=== PATIENT | female | born 1950 | race Caucasian/White ===

== ENCOUNTER 2023-02-18 12:07 | Outpatient (CLI) | payer OTHER, MEDICARE, SELFPAY ==
--- OUTSIDE RECORDS SUMMARY | 2023-02-19 22:15 | XMS_ITS | Continuity of Care Document ---
Author Name Unknown Organization [facility] Address [address] [place] [address] Phone Care Team Providers Care Primer Assembler Name Role Phone Will Aaron HERNANDEZ Unavailable Unavailabl e Procedures Procedure Date THERAPEUTIC EXERCISES MANUAL THERAPY THERAPEUTIC EXERCISES MANUAL THERAPY THERAPEUTIC EXERCISES THERAPEUTIC EXERCISES PT RE-EVALUATION MANUAL THERAPY MANUAL THERAPY THERAPEUTIC EXERCISES TheraTube Door Strap (Non-Thera) THERAPEUTIC ACTIVITIES THERAPEUTIC EXERCISES THERAPEUTIC EXERCISES THERAPEUTIC EXERCISES PT EVALUATION NEUROMUSCULAR REEDUCATION PT RE-EVALUATION THERAPEUTIC EXERCISES MANUAL THERAPY NEUROMUSCULAR REEDUCATION THERAPEUTIC EXERCISES NEUROMUSCULAR REEDUCATION THERAPEUTIC ACTIVITIES THERAPEUTIC EXERCISES SI Belt Size S-M NEUROMUSCULAR REEDUCATION PT RE-EVALUATION THERAPEUTIC EXERCISES NEUROMUSCULAR REEDUCATION MANUAL THERAPY THERAPEUTIC EXERCISES THERAPEUTIC ACTIVITIES THERAPEUTIC EXERCISES NEUROMUSCULAR REEDUCATION THERAPEUTIC ACTIVITIES NEUROMUSCULAR REEDUCATION THERAPEUTIC EXERCISES NEUROMUSCULAR REEDUCATION THERAPEUTIC EXERCISES THERAPEUTIC ACTIVITIES NEUROMUSCULAR REEDUCATION THERAPEUTIC ACTIVITIES THERAPEUTIC EXERCISES NEUROMUSCULAR REEDUCATION PT RE-EVALUATION THERAPEUTIC ACTIVITIES TheraBand NEUROMUSCULAR REEDUCATION THERAPEUTIC ACTIVITIES THERAPEUTIC EXERCISES THERAPEUTIC EXERCISES NEUROMUSCULAR REEDUCATION THERAPEUTIC ACTIVITIES NEUROMUSCULAR REEDUCATION THERAPEUTIC ACTIVITIES THERAPEUTIC EXERCISES NEUROMUSCULAR REEDUCATION THERAPEUTIC ACTIVITIES THERAPEUTIC EXERCISES THERAPEUTIC ACTIVITIES THERAPEUTIC EXERCISES NEUROMUSCULAR REEDUCATION NEUROMUSCULAR REEDUCATION THERAPEUTIC EXERCISES THERAPEUTIC ACTIVITIES Fit Loop MANUAL THERAPY THERAPEUTIC EXERCISES NEUROMUSCULAR REEDUCATION THERAPEUTIC ACTIVITIES PT EVALUATION THERAPEUTIC EXERCISES Advance Directives Directive Yes / No Effective Date File Name No Information Encounters Encounter Description Practice Location Reason(s) For Visit Diagnoses Date Provider Providers Copied on Encounter [facility], [address] [place] [address], [id number], [place] tel:[phone] [facility] No Information Derick Walker. [address] [place] [address], [id number], [place]. tel:[phone] [facility], [address] [place] [address], [id number], [place] tel:[phone] [facility] Frozen shoulder (chief complaint) Adhesive capsulitis of shoulder [facility]. [address] [place] [address], [address]. tel:[phone] Referring Provider: Aaron Elizabeth, [address] [place] [address], [id number]. tel:[phone] [facility], [address] [place] [address], [id number], [place] tel:[phone] [facility] [place] Frozen shoulder (chief complaint) Adhesive capsulitis of shoulder [facility]. [address] [place] [address], [address]. tel:[phone] Referring Provider: Aaron Elizabeth, [address] [place] [address], [address]. tel:[phone] [facility], [address] [place] [address], [id number], [place] tel:[phone] [facility] [place] neck pain (chief complaint) No Information [facility]. [address] [place] [address], [address]. tel:[phone] Referring Provider: Aaron Elizabeth, [address] [place] [address], [id number]. tel:[phone] [facility], [address] [place] [address], [id number], [place] tel:[phone] [facility] [place] neck pain (chief complaint) No Information [facility]. [address] [place] [address], [address]. tel:[phone] Referring Provider: Aaron Elizabeth, [address] [place] [address], [address]. tel:[phone] [facility], [address] [place] [address], [id number], [place] tel:[phone] [facility] [place] neck pain (chief complaint) No Information [facility]. [address] [place] [address], [address]. tel:[phone] Referring Provider: Aaron Elizabeth, [address] [place] [address], [address]. tel:[phone] [facility], [address] [place] [address], [id number], [place] tel:[phone] [facility] [place] neck pain (chief complaint) No Information [facility]. [address] [place] [address], [address]. tel:[phone] Referring Provider: Aaron Elizabeth, [address] [place] [address], [address]. tel:[phone] [facility], [address] [place] [address], [id number], [place] tel:[phone] [facility] [place] neck pain (chief complaint) No Information [facility]. [address] [place] [address], [address]. tel:[phone] Referring Provider: Aaron Elizabeth, [address] [place] [address], [address]. tel:[phone] [facility], [address] [place] [address], [id number], [place] tel:[phone] [facility] [place] neck pain (chief complaint) Adhesive capsulitis of shoulder [facility]. [address] [place] [address], [address]. tel:[phone] Referring Provider: Aaron Elizabeth, [address] [place] [address], [address]. tel:[phone] [facility], [address] [place] [address], [id number], [place] tel:[phone] [facility] [place] neck pain (chief complaint) No Information [facility]. [address] [place] [address], [address]. tel:[phone] Referring Provider: Aaron Elizabeth, [address] [place] [address], [address]. tel:[phone] [facility], [address] [place] [address], [id number], [place] tel:[phone] [facility] [place] neck pain (chief complaint) No Information [facility]. [address] [place] [address], [address]. tel:[phone] Referring Provider: Aarno Elizabeth, [address] [place] [address], [address]. tel:[phone] [facility], [address] [place] [address], [id number], [place] tel:[phone] [facility] [place] neck pain (chief complaint) No Information [facility]. [address] [place] [address], [address]. tel:[phone] Referring Provider: Aaron Elizabeth, [address] [place] [address], [address]. tel:[phone] [facility], [address] [place] [address], [id number], [place] tel:[phone] [facility] [place] neck pain (chief complaint) No Information [facility]. [address] [place] [address], [address]. tel:[phone] Referring Provider: Aaron Elizabeth, [address] [place] [address], [address]. tel:[phone] [facility], [address] [place] [address], [id number], [place] tel:[phone] [facility] [place] neck pain (chief complaint) No Information [facility]. [address] [place] [address], [address]. tel:[phone] Referring Provider: Aaron Elizabeth, [address] [place] [address], [address]. tel:[phone] [facility], [address] [place] [address], [id number], [place] tel:[phone] [facility] [place] neck pain (chief complaint) No Information [facility]. [address] [place] [address], [address]. tel:[phone] Referring Provider: Aaron Elizabeth, [address] [place] [address], [address]. tel:[phone] [facility], [address] [place] [address], [id number], [place] tel:[phone] [facility] [place] neck pain (chief complaint) Unspecified symptom associated with female genital organs [facility]. [address] [place] [address], [address]. tel:[phone] Referring Provider: Aaron Elizabeth, [address] [place] [address], [address]. tel:[phone] [facility], [address] [place] [address], [id number], [place] tel:[phone] [facility] [place] neck pain (chief complaint) No Information [facility]. [address] [place] [address], [address]. tel:[phone] Referring Provider: Aaron Elizabeth, [address] [place] [address], [address]. tel:[phone] [facility], [address] [place] [address], [id number], [place] tel:[phone] [facility] [place] neck pain (chief complaint) No Information [facility]. [address] [place] [address], [address]. tel:[phone] Referring Provider: Aaron Elizabeth, [address] [place] [address], [address]. tel:[phone] [facility], [address] [place] [address], [id number], [place] tel:[phone] [facility] [place] neck pain (chief complaint) No Information [facility]. [address] [place] [address], [address]. tel:[phone] Referring Provider: Aaron Elizabeth, [address] [place] [address], [address]. tel:[phone] [facility], [address] [place] [address], [id number], [place] tel:[phone] [facility] [place] neck pain (chief complaint) No Information [facility]. [address] [place] [address], [address]. tel:[phone] Referring Provider: Aaron Elizabeth, [address] [place] [address], [address]. tel:[phone] [facility], [address] [place] [address], [id number], [place] tel:[phone] [facility] [place] neck pain (chief complaint) No Information Mateus MANN [facility]. [address] [place] [address], [address]. tel:[phone] Referring Provider: Aaron Elizabeth, [address] [place] [address], [address]. tel:[phone] [facility], [address] [place] [address], [id number], [place] tel:[phone] [facility] [place] neck pain (chief complaint) No Information Mateus Manleyen. [address] [place] [address], [address]. tel:[phone] Referring Provider: Aaron Elizabeth, [address] [place] [address], [address]. tel:[phone] [facility], [address] [place] [address], [id number], [place] tel:[phone] [facility] [place] neck pain (chief complaint) No Information Mateus F[facility]. [address] [place] [address], [address]. tel:[phone] Referring Provider: Aaron Elizabeth, [address] [place] [address], [address]. tel:[phone] [facility], [address] [place] [address], [id number], [place] tel:[phone] [facility] [place] neck pain (chief complaint) No Information Mateus MANN [facility]. [address] [place] [address], [address]. tel:[phone] Referring Provider: Aaron Elizabeth, [address] [place] [address], [address]. tel:[phone] [facility], [address] [place] [address], [id number], tel:[phone] [facility] [place] neck pain (chief complaint) No Information [facility]. [address] [place] [address], [address]. tel:[phone] Referring Provider: Aaron Elizabeth, [address] [place] [address], [address]. tel:[phone] [facility], [address] [place] [address], [id number], tel:[phone] [facility] [place] neck pain (chief complaint) No Information [facility]. [address] [place] [address], [address]. tel:[phone] Referring Provider: Aaron Elizabeth, [address] [place] [address], [address]. tel:[phone] [facility], [address] [place] [address], [id number], tel:[phone] [facility] neck pain (chief complaint) Cervicalgia [facility]. [address] [place] [address], [address]. tel:[phone] Referring Provider: Aaron Elizabeth, [address] [place] [address], [address]. tel:[phone] Family History Family Member Type Diagnosis Age At Onset No Information Payers Payer name Insurance type Covered alliance party ID Dimitry kraftcabrera(s) [facility] [id number] Social History Type Description Quantity Date Captured Comments Sex Female Smoking Status No Information Chief Complaint And Reason For Visit No Information Reason For Referral Reason For Referral No Information Plan Of Treatment Date Type Action Status No Information History Of Present Illness Encounter Date Complaint History Of Prese nt Illness Frozen shoulder No L shoulder pa in. Able to perform most ADL's without difficulty other than fastening bra with left hand. Frozen shoulder R neck is a bit sore and gets and occasional OCHOA. L shoulder is feeling good. Functional Status Date Functional Assessmen t No Information Instructions Date Instruction Additional Infor mation No Information Assessments Type Assessment Date No Information Patient Care Teams Name Effective Dates (start - stop) Status Members No Information
--- OUTSIDE RECORDS SUMMARY | 2023-02-19 22:15 | XMS_ITS | Continuity of Care Document ---
Author Name Unknown Organization [facility] Address [address] [address] [place] [address] Phone Care Team Providers Care Glass Silverer Name Role Phone Alessandra Larose MD Unavailable Unavailable Allergies, Adverse Reactions, Alerts Substance Reaction Status Criticality QUETIAPINE FUMARATE agitationSleeplessness Active No Information cefadroxil cough Active No Information CEPHALEXIN MONOHYDRATE cough Active No In formation trimethoprim Rash Active No Information sulfamethoxazole Rash Active No Informat ion NITROFURANTOIN MACROCRYSTALLINE Rash Active No Information Penicillins unsure Active No Information Medications Medication Instructions Dosage Effective Dates (start - stop) Status Comments ZINC (unknown strength) take 1 Tablet by Oral route once every other day Not Available - Active COQ-10 (unknown strength) take one orally every other day Not Available - Active VITAMIN D3 (unknown strength) take 1 by Oral route every other day Not Available - Active vitamin E (dl, acetate) 400 unit capsule take 1 Capsule by Oral route every other day - Active RAY-C (unknown strength) take 2 daily Not Available - Active RESVERATROL (unknown strength) take 1 time daily Not Available - Active GLUTATHIONE-L (unknown strength) take daily Not Available - Active ALPHA LIPOIC ACID (unknown strength) take 1 tablet by oral route every day Not Available - Active CRANBERRY (unknown strength) take 1 tab every other day Not Available - Active LYCOPENE (unknown strength) take every other day Not Available - Active GRAPE SEED (unknown strength) take 1 tab every other day Not Available - Active Herbal Medications/Suppleme nts unknown take bone strength/basic B/ xeno protx/ skin nails hair every other day - Active MOLYBDENUM (unknown strength) 3 drops every other day Not Available - Active multivitamin capsule take 1 capsule by oral route every day - Active PROBIOTIC (unknown strength) take one orally everyday Not Available - Active MAGNESIUM (unknown strength) take three orally every day Not Available - Active ODORLESS GARLIC (unknown strength) take one orally everyday Not Available - Active Procedures Procedure Date Colonoscopy Flex; W/remov Les- 19 Level Iv-surg Path Gross/micro Colonoscopy Flex; W/remov Les- 13 Level Iv-surg Path Gross/micro Advance Directives Directive Yes / No Effective Date File Name No Information Encounters Encounter Description Practice Location Reason(s) For Visit Diagnoses Date Provider Providers Copied on Encounter [facility], [address] [address], [place], [place], [id number], tel:[phone] [facility] No Information 9 Lachelle Aparicio. [address] [place] [address], [id number], [place]. tel:[phone] [facility], [address] [address], [place], [place], [id number], tel:[phone] [facility] No Information 9 No Information [facility], [address] [address], [place], [place], [id number], tel:[phone] [facility] Screening ColonoscopyColor ectal polypsDiverticul osis of colon without diverticulitisHe morrhoids, internalPersonal history of colonic polypsBenign neoplasm of cecumEncounter for screening for malignant neoplasm of colonDvrtclos of lg int w/o perforation or abscess w/o bleedingBenign neoplasm of cecumPersonal history of colonic polyps 9 Lachelle Aparicio. [address] [place] [address], [id number], . tel:[phone] Referring Provider: Referral Self. [facility], [address] [address], [place], [id number], [place] tel:[phone] Cla[facility] Polyp-intes/rect /stom-unc BehFamily Hx GI Tract CancerColon Cancer ScreeningBenign Neoplasm ColonDiverticulo sis Of ColonColon Cancer ScreeningDiverti culosis Of ColonFamily Hx GI Tract CancerBenign Neoplasm Colon 3 Lachelle Aparicio. [address] [facility], [place], [place], [id number], [place]. tel:[phone] Referring Provider: [place], [address] [facility], [place], [address]. tel:[phone] Family History Family Member Type Diagnosis Age At Onset Son Problem (finding) Alive and well Mother Problem (finding) Daughter Problem (finding) Alive and well Father Problem (finding) cancer of colon (Cause Of ) Brother Problem (finding) prostate cancer Payers Payer name Insurance type Covered alliance party ID Authoriza ticabrera(s) Medicare NGS MB [id number] [employer] 16 [id number] Social History Type Description Quantity Date Captured Comments Sex Female Smoking Status No Information Chief Complaint And Reason For Visit No Information Reason For Referral Reason For Referral No Information Plan Of Treatment Date Type Action Status No Information History Of Present Illness Encounter Date Complaint History Of Prese nt Illness No Information Functional Status Date Functional Assessmen t No Information Instructions Date Instruction Additional Infor mation Colon Polyps Related to Color ectal polyps Hemorrhoids Related to Color ectal polyps Colon Cancer Prevention Related to Colorectal polyps High Fiber Diet Related to Color ectal polyps Diverticulosis/Diverticulitis Re lated to Colorectal polyps Assessments Type Assessment Date No Information Patient Care Teams Name Effective Dates (start - stop) Status Members No Information
== END 2023-02-18 12:08 | disposition home or self-care (01) ==
LOC: NFLDREF 02-19 22:13
PROVIDERS: PCP Family Medicine; Referring Provider Family Medicine; Visit Provider Physician Assistant
DX: R30.0 Dysuria (principal); R39.9 Unspecified symptoms and signs involving the genitourinary system
CPT/HCPCS: 87086

== ENCOUNTER 2023-02-22 10:36 | Outpatient (CLI) | payer OTHER, SELFPAY ==
--- OUTSIDE RECORDS SUMMARY | 2023-02-22 10:44 | XMS_ITS | Continuity of Care Document ---
Author Name Unknown Organization [facility] Address [address] [place] [address] Phone Care Team Providers Care Teacher'S Assistant Name Role Phone Will Aaron HERNANDEZ Unavailable [...] Diagnoses Date Provider Providers Copied on Encounter [facility], [address] [place] [address], [id number], [place] tel:[phone] [facility] No Information Derick Walker. [address] [place] [address], [id number], [place]. tel:[phone] [facility], [address] [place] [address], [id number], [place] tel:[phone] [facility] Frozen shoulder (chief complaint) Adhesive capsulitis of shoulder [facility] [place]. [address] [place] [address], [id number]. tel:[phone] Referring Provider: Aaron Elizabeth, [address] [place] [address], [id number]. tel:[phone] [facility], [address] [place] [address], [id number], [place] tel:[phone] [facility] Frozen shoulder (chief complaint) Adhesive capsulitis of shoulder [facility]. [address] [place] [address], [id number]. tel:[phone] Referring Provider: Aaron Elizabeth, [address] [place] [address], [id number]. tel:[phone] [facility], [address] [place] [address], [id number], [place] tel:[phone] [facility] [place] neck pain (chief complaint) No Information [facility]. [address] [place] [address], [address]. tel:[phone] Referring Provider: Aaron Elizabeth, [address] [place] [address], [id number]. tel:[phone] [facility], [address] [place] [address], [id number], [place] tel:[phone] [facility] [place] neck pain (chief complaint) No Information [facility]. [address] [place] [address], [id number]. tel:[phone] Referring Provider: aAron Elizabeth, [address] [place] [address], [id number]. tel:[phone] [facility], [address] [place] [address], [id number], [place] tel:[phone] [facility] [place] neck pain (chief complaint) No Information [facility]. [address] [place] [address], [id number]. tel:[phone] Referring Provider: Aaron Elizabeth, [address] [place] [address], [id number]. tel:[phone] [facility], [address] [place] [address], [id number], [place] tel:[phone] [facility] [place] neck pain (chief complaint) No Information [facility]. [address] [place] [address], [id number]. tel:[phone] Referring Provider: Aaron Elizabeth, [address] [place] [address], [id number]. tel:[phone] [facility], [address] [place] [address], [id number], [place] tel:[phone] [facility] [place] neck pain (chief complaint) No Information [facility]. [address] [place] [address], [id number]. tel:[phone] Referring Provider: Aaron Elizabeth, [address] [place] [address], [id number]. tel:[phone] [facility], [address] [place] [address], [id number], [place] tel:[phone] [facility] [place] neck pain (chief complaint) Adhesive capsulitis of shoulder [facility]. [address] [place] [address], [id number]. tel:[phone] Referring Provider: Aaron Elizabeth, [address] [place] [address], [id number]. tel:[phone] [facility], [address] [place] [address], [id number], [place] tel:[phone] [facility] [place] neck pain (chief complaint) No Information [facility]. [address] [place] [address], [address]. tel:[phone] Referring Provider: Aaron Elizabeth, [address] [place] [address], [address]. tel:[phone] [facility], [address] [place] [address], [id number], [place] tel:[phone] [facility] [place] neck pain (chief complaint) No Information [facility]. [address] [place] [address], [id number]. tel:[phone] Referring Provider: Aaron Elizabeth, [address] [place] [address], [id number]. tel:[phone] [facility], [address] [place] [address], [id number], [place] tel:[phone] [facility] [place] neck pain (chief complaint) No Information [facility]. [address] [place] [address], [address]. tel:[phone] Referring Provider: Aaron Elizabeth, [address] [place] [address], [id number]. tel:[phone] [facility], [address] [place] [address], [id number], [place] tel:[phone] [facility] [place] neck pain (chief complaint) No Information [facility]. [address] [place] [address], [id number]. tel:[phone] Referring Provider: Aaron Elizabeth, [address] [place] [address], [id number]. tel:[phone] [facility], [address] [place] [address], [id number], [place] tel:[phone] [facility] [place] neck pain (chief complaint) No Information [facility]. [address] [place] [address], [address]. tel:[phone] Referring Provider: Aaron Elizabeth, [address] [place] [address], [id number]. tel:[phone] [facility], [address] [place] [address], [id number], [place] tel:[phone] [facility] [place] neck pain (chief complaint) No Information [facility]. [address] [place] [address], [id number]. tel:[phone] Referring Provider: Aaron Elizabeth, [address] [place] [address], [id number]. tel:[phone] [facility], [address] [place] [address], [id number], [place] tel:[phone] [facility] [place] neck pain (chief complaint) Unspecified symptom associated with female genital organs [facility]. [address] [place] [address], [address]. tel:[phone] Referring Provider: Aaron Elizabeth, [address] [place] [address], [id number]. tel:[phone] [facility], [address] [place] [address], [id number], [place] tel:[phone] [facility] [place] neck pain (chief complaint) No Information [facility]. [address] [place] [address], [address]. tel:[phone] Referring Provider: Aaron Elizabeth, [address] [place] [address], [id number]. tel:[phone] [facility], [address] [place] [address], [id number], [place] tel:[phone] [facility] [place] neck pain (chief complaint) No Information [facility]. [address] [place] [address], [address]. tel:[phone] Referring Provider: Aaron Elizabeth, [address] [place] [address], [id number]. tel:[phone] [facility], [address] [place] [address], [id number], [place] tel:[phone] [facility] [place] neck pain (chief complaint) No Information [facility]. [address] [place] [address], [id number]. tel:[phone] Referring Provider: Aaron Elizabeth, [address] [place] [address], [address]. tel:[phone] [facility], [address] [place] [address], [id number], [place] tel:[phone] [facility] [place] neck pain (chief complaint) No Information [facility] [place]. [address] [place] [address], [address]. tel:[phone] Referring Provider: Aaron Elizabeth, [address] [place] [address], [id number]. tel:[phone] [facility], [address] [place] [address], [id number], [place] tel:[phone] [facility] [place] neck pain (chief complaint) No Information Mateus M[facility] [place]. [address] [place] [address], [address]. tel:[phone] Referring Provider: Aaron Elizabeht, [address] [place] [address], [id number]. tel:[phone] [facility], [address] [place] [address], [id number], [place] tel:[phone] [facility] [place] neck pain (chief complaint) No Information Mateus [facility]. [address] [place] [address], [id number]. tel:[phone] Referring Provider: Aaron Elizabeth, [address] [place] [address], [address]. tel:[phone] [facility], [address] [place] [address], [id number], [place] tel:[phone] [facility] [place] neck pain (chief complaint) No Information Mateus FONTAINE [facility]. [address] [place] [address], [address]. tel:[phone] Referring Provider: Aaron Elizabeth, [address] [place] [address], [id number]. tel:[phone] [facility], [address] [place] [address], [id number], [place] tel:[phone] [facility] [place] neck pain (chief complaint) No Information Mateus M[facility] [place]. [address] [place] [address], [address]. tel:[phone] Referring Provider: Aaron Elizabeth, [address] [place] [address], [address]. tel:[phone] [facility], [address] [place] [address], [id number], tel:[phone] [facility] neck pain (chief complaint) No Information [facility]. [address] [place] [address], [address]. tel:[phone] Referring Provider: Aaron Elizabeth, [address] [place] [address], [address]. tel:[phone] [facility], [address] [place] [address], [id number], tel:[phone] [facility] [place] neck pain (chief complaint) No Information [facility]. [address] [place] [address], [address]. tel:[phone] Referring Provider: Aaron Elizabeth, [address] [place] [address], [address]. tel:[phone] [facility], [address] [place] [address], [id number], tel:[phone] [facility] neck pain (chief complaint) Cervicalgia [facility]. [address] [place] [address], [address]. tel:[phone] Referring Provider: Aaron Elizabeth, [address] [place] [address], [address]. tel:[phone] Family History Family Member Type Diagnosis Age At Onset No Information Payers Payer name Insurance type Covered democrat ID Dimitry kraftcabrera(s[id number] Social History Type Description Quantity Date Captured [...]
== END 2023-02-22 10:37 | disposition home or self-care (01) ==
PROVIDERS: PCP Family Medicine; Visit Provider Family Medicine
DX: E78.00 Pure hypercholesterolemia, unspecified (principal); R35.0 Frequency of micturition; N90.4 Leukoplakia of vulva
CPT/HCPCS: 80048; 80061; 82306; 84443

== ENCOUNTER 2023-03-03 13:29 | Emergency (ER) | payer OTHER, SELFPAY ==
[2023-03-03 13:37] VITALS: BP 147/75; PULSE 81; RESP 14; TEMP 36.5; O2SAT 94; BMI 24.0
--- NOTE | 2023-03-03 13:44 | ED_ITS ---
HPI - Female Genitourinary General Time Seen by Provider: 13:44 Date Seen: 03/03/23 Chief complaint: Urogenital Problems, Female Stated complaint: bubbles in urine Time Seen by Provider: 03/03/23 13:44 Source: patient, RN notes reviewed and old records reviewed Mode of arrival: ambulatory Limitations: no limitations History of Present Illness HPI Narrative: Barbie is a very pleasant 72-year-old female with a history of nocturia lichen sclerosis of the vulva basal cell carcinoma who comes to the emergency room for evaluation regarding possible urinary retention and pain with urination. Patient notes that she has noticed during the day she urinates frequently but they are rather small amounts. She states that night she is up often during the night but is not as much of the day and has increased amounts at urination. She is worried that somehow she is retaining urine. She notes that 30 years ago she did have an ultrasound that was normal. Patient was recently seeing in urgent care at which time her urine was okay and I culture came back with less than 50,000 mixed phillip. I believe that she was under the impression that this indicated an infection. She is not currently on antibiotics. After having been seen in urgent care she saw Dr. Ross who noted a wet prep that was negative as well as lichen sclerosus. He has referred her to Dr. Tran of the OBGYN department for biopsy and further evaluation. Unfortunately, she states that she was unable to get in for approximately a month. She states that she was coming here today because she thought it was urgent care and then left and then decided to come back. She notes that she has a continued stinging feeling while she is urinating in afterwards. She denies fever chills. She has been losing weight and elaborates that she has recently changed her diet to reflect a blood type indicated diet. Unfortunately, she states that she thinks she has interstitial cystitis and that all of the foods on her particular diet were triggers for her. Related Data Home Medications Medication Instructions Recorded Confirmed clobetasol 0.05 % topical ointment 1 topical .Twice Weekly 08/07/22 02/22/23 red yeast rice 600 mg capsule 600 mg PO BID 08/07/22 02/22/23 ashwagandha extract 120 mg capsule mg PO 02/22/23 02/22/23 cholecalciferol (vitamin D3) 125 125 mcg PO QDAY 02/22/23 02/22/23 mcg (5,000 unit) capsule magnesium glycinate 500 mg PO 02/22/23 02/22/23 vitamin K2 100 mcg capsule 100 mcg PO QDAY 02/22/23 02/22/23 Allergies Allergy/AdvReac Type Severity Reaction Status Date / Time cephalexin Allergy Intermediate Cough Verified 02/22/23 09:50 nitrofurantoin Allergy Intermediate Rash Verified 02/22/23 09:50 Penicillins Allergy Intermediate childhood Verified 02/22/23 09:50 sulfamethoxazole Allergy Intermediate Rash Verified 02/22/23 09:50 [From Sulfamethoxazole-Trimethoprim] trimethoprim Allergy Intermediate Rash Verified 02/22/23 09:50 [From Sulfamethoxazole-Trimethoprim] cefadroxil Allergy Mild Cough Verified 02/22/23 09:50 Review of Systems Status of ROS: Reports: 6 or more systems reviewed and unremarkable except as noted in History and below Const: Denies: fever or chills GI: Denies: abdominal pain or nausea : Reports: painful urination and urinary frequency; Denies: blood in urine [facility] Medical History Urinary frequency ?R35.0 - Frequency of micturition (ICD-10) Neck pain ?M54.2 - Cervicalgia (ICD-10) History of malignant neoplasm of breast ?Z85.3 - Personal history of malignant neoplasm of breast (ICD-10) Encounter for annual physical exam ?Z00.00 - Encounter for general adult medical examination without abnormal findings (ICD-10) Dermatitis ?L30.9 - Dermatitis, unspecified (ICD-10) Back pain ?M54.9 - Dorsalgia, unspecified (ICD-10) Surgical History History of tooth extraction ?K08.409 - Partial loss of teeth, unspecified cause, unspecified class (ICD- 10) History of dilation and curettage ?Z98.890 - Other specified postprocedural states (ICD-10) History of breast biopsy ?Z98.890 - Other specified postprocedural states (ICD-10) History of bilateral mastectomy ?Z90.13 - Acquired absence of bilateral breasts and nipples (ICD-10) History of basal cell carcinoma (BCC) excision ?Z98.890 - Other specified postprocedural states (ICD-10) ?Z85.828 - Personal history of other malignant neoplasm of skin (ICD-10) Social History Smoking Status: Never smoker Exam Narrative: Exam Narrative: Barbie is alert and oriented. Provides a detailed history. Her accompanies her here today. GCS of 15, speech is normal. Heart with regular rate and rhythm and lungs are clear. Abdomen is soft nontender. No masses palpated. Moving all extremities. Const: Vital Signs, click to edit/add: Vital Signs - 24 hr 03/03/23 13:37 Temperature 97.7 F Pulse Rate [Pulse Oximeter] 81 Respiratory Rate 14 Blood Pressure [Ri ght Upper Arm] 147/75 H Pulse Oximetry 94 Oxygen Delivery Me thod Room Air Documenting provider has reviewed patient's vital signs: yes Course Course Hospital Course: I did explain to Barbie in her that we likely will not come to a conclusion today but certainly I would be happy to rule out urinary retention and a urinary tract infection. Suggest collection of a UA, and then post void residual check with ultrasound. I will also culture her urinalysis no matter what it looks like. I did initially suggest labs to include a CBC basic panel but it does appear that Dr. Ross has already done that recently. I did explain to Mane her that in the emergency room we would not do any long-term studies to evaluate this. Mainly I would make sure that there is no evidence of infection and need for antibiotics as well as ultrasound to make sure that she did not need an indwelling catheter. Reevaluation(s) Reevaluation #1: Patient has extensive questioning of her symptoms. We have gone over the importance of follow-up to see if her lichen sclerosis is possibly implicated in how she is feeling. She may ultimately need referral to Urology. Vital Signs Vital signs: Initial Vital Signs Temperature 97.7 F 03/03/23 13:37 Temperature Source Temporal Artery Scan 03/03/23 13:37 Pulse Rate 81 03/03/23 13:37 Respiratory Rate 14 03/03/23 13:37 Blood Pressure 147/75 H 03/03/23 13:37 Blood Pressure Mean 99 03/03/23 13:37 Pulse Oximetry 94 03/03/23 13:37 Oxygen Delivery Method Room Air 03/03/23 13:37 Vital Signs Temperature 97.7 F 03/03/23 13:37 Pulse Rate 81 03/03/23 13:37 Respiratory Rate 14 03/03/23 13:37 Blood Pressure 147/75 H 03/03/23 13:37 Pulse Oximetry 94 03/03/23 13:37 Oxygen Delivery Method Room Air 03/03/23 13:37 Temperature 97.7 F 03/03/23 13:37 Pulse Rate 81 03/03/23 13:37 Respiratory Rate 14 03/03/23 13:37 Blood Pressure 147/75 H 03/03/23 13:37 Pulse Oximetry 94 03/03/23 13:37 Oxygen Delivery Method Room Air 03/03/23 13:37 MDM - Female Genitourinary MDM Narrative Medical decision making narrative: 1. Dysuria-no evidence of UTI at this time. I have ordered a culture in spite of the reassuring urinalysis. 2. Nocturia-no evidence of urinary retention with postvoid residual of 21. 3. Disposition-at this time recommend follow-up with OBGYN as her primary had also done. I would call let them know that patient was here in the emergency room and perhaps they could find her appointment on an expedited basis. Reassurance at this time. However, patient is very concerned in spite of reassuring labs at this time. We spoke about possibility of treatment with steroid cream which she actually already has but has not been using it very often. We also spoke about using estrogen cream but ultimately I would like all of these decisions to be made by her primary with consultation assistance. Medical Records Attestation: I reviewed the patient's medical records. Lab Data Attestation: I reviewed the patient's lab results. Labs: Lab Results 03/03/23 Range/Units 14:24 Urine Color Yellow (Yellow) Urine Appearance Clear (Clear) Urine pH 7.0 (5.0-8.5) Ur Specific [place] 1.010 (1.000-1.030) Urine Protein Negative (Negative) Urine Glucose (UA) Negative (Negative) Urine Ketones 2+ A (Negative) Urine Blood Trace-intact A (Negative) Urine Nitrite Negative (Negative) Urine Bilirubin Negative (Negative) Urine Urobilinogen 0.2 (0.2-1.0) Ur Leukocyte Esterase Trace A (Negative) Urine RBC 0-2 (0-2) Urine WBC 0-2 (0-5) Ur Squamous Epith Cells Few (None-Few) Urine Bacteria Few A (None) Discharge Plan Discharge Clinical Impression: Dysuria Patient Disposition: Home, Self-Care Condition: Unchanged Instructions: Dysuria (ED) Additional Instructions: Today there was no evidence of urinary retention on the ultrasound. Does appear that you are emptying your bladder. Your urinalysis showed that you are mildly dehydrated but there is no evidence of a urinary tract infection. I have asked that this be sent for a urine culture. Follow-up with OBGYN as previously suggested. Let them know you were seen in the emergency room and perhaps they would be able to find you an appointment on an expedited basis. Return as needed. Prescriptions: No Action red yeast rice 600 mg capsule 600 mg PO BID clobetasol 0.05 % ointment 1 topical .Twice Weekly Rx Instructions: APPLY SPARINGLY TO AFFECTED AREA magnesium glycinate 100 mg magnesium capsule 500 mg PO ashwagandha extract 120 mg capsule PO cholecalciferol (vitamin D3) 125 mcg (5,000 unit) capsule 125 mcg PO QDAY vitamin K2 100 mcg capsule 100 mcg PO QDAY Follow Up/Referrals: Dewayne Ross MD [Primary Care Provider] - Stand Alone Forms: [facility] Info Instructions
[2023-03-03 14:30] LABS: Appearance Urine Clear (Clear); Bilirubin Urine Negative (Negative); Blood Urine Trace-intact (Negative); Color Urine Yellow (Yellow); Glucose Urine Negative (Negative); Ketones Urine 2+ (Negative); Leukocyte Esterase Urine Trace (Negative); Nitrite Urine Negative (Negative); Protein Urine Negative (Negative); Urobilinogen Urine 0.2 (0.2-1.0)
[2023-03-03 15:17] LABS: Bacteria Urine Few; RBC Urine 0-2 (0-2); Squamous Epithelial Cell Urine Few (None-Few); WBC Urine 0-2 (0-5)
== END 2023-03-03 15:44 | disposition home or self-care (01) ==
PROVIDERS: Emergency Provider Family Medicine; PCP Family Medicine
DX: R30.0 Dysuria (principal)
CPT/HCPCS: 51798; 81001; 87086; 99283; 99284

== ENCOUNTER 2023-03-18 13:15 | Outpatient (CLI) | payer OTHER, SELFPAY ==
--- OUTSIDE RECORDS SUMMARY | 2023-03-20 11:55 | XMS_ITS | Continuity of Care Document ---
Author Name Unknown Organization [facility] Address [address] [place] [address] Phone Care Team Providers Care Financial Reporting Analyst Name Role Phone Will Aaron HERNANDEZ Unavailable [...] Diagnoses Date Provider Providers Copied on Encounter [facility], [address] [place] [address], [id number], [place] tel:[phone] [facility] No Information Derick Walker. [address] [place] [address], [id number], [place]. tel:[phone] [facility], [address] [place] [address], [id number], [place] tel:[phone] [facility] Frozen shoulder (chief complaint) Adhesive capsulitis of shoulder [facility]. [address] [place] [address], [id number]. tel:[phone] Referring Provider: Aaron Elizabeth, [address] [place] [address], [id number]. tel:[phone] [facility], [address] [place] [address], [id number], [place] tel:[phone] [facility] [place] Frozen shoulder (chief complaint) Adhesive capsulitis of shoulder [facility]. [address] [place] [address], [address]. tel:[phone] Referring Provider: Aaron Elizabeth, [address] [place] [address], [id number]. tel:[phone] [facility], [address] [place] [address], [id number], [place] tel:[phone] [facility] [place] neck pain (chief complaint) No Information [facility]. [address] [place] [address], [address]. tel:[phone] Referring Provider: Aaron Elizabeth, [address] [place] [address], [id number]. tel:[phone] [facility], [address] [place] [address], [id number], [place] tel:[phone] [facility] [place] neck pain (chief complaint) No Information [facility]. [address] [place] [address], [address]. tel:[phone] Referring Provider: Aaron Elizabeth, [address] [place] [address], [id number]. tel:[phone] [facility], [address] [place] [address], [id number], [place] tel:[phone] [facility] [place] neck pain (chief complaint) No Information [facility]. [address] [place] [address], [address]. tel:[phone] Referring Provider: Aaron Elizabeth, [address] [place] [address], [id number]. tel:[phone] [facility], [address] [place] [address], [id number], [place] tel:[phone] [facility] [place] neck pain (chief complaint) No Information [facility]. [address] [place] [address], [id number]. tel:[phone] Referring Provider: Aaron Elizabeth, [address] [place] [address], [id number]. tel:[phone] [facility], [address] [place] [address], [id number], [place] tel:[phone] [facility] [place] neck pain (chief complaint) No Information [facility]. [address] [place] [address], [address]. tel:[phone] Referring Provider: Aaron Elizabeth, [address] [place] [address], [id number]. tel:[phone] [facility], [address] [place] [address], [id number], [place] tel:[phone] [facility] [place] neck pain (chief complaint) Adhesive capsulitis of shoulder [facility]. [address] [place] [address], [address]. tel:[phone] Referring Provider: Aaron Elizabeth, [address] [place] [address], [id number]. tel:[phone] [facility], [address] [place] [address], [id number], [place] tel:[phone] [facility] [place] neck pain (chief complaint) No Information [facility]. [address] [place] [address], [address]. tel:[phone] Referring Provider: Aaron Elizabeth, [address] [place] [address], [id number]. tel:[phone] [facility], [address] [place] [address], [id number], [place] tel:[phone] [facility] [place] neck pain (chief complaint) No Information [facility]. [address] [place] [address], [address]. tel:[phone] Referring Provider: Aaron Elizabeth, [address] [place] [address], [id number]. tel:[phone] [facility], [address] [place] [address], [id number], [place] tel:[phone] [facility] [place] neck pain (chief complaint) No Information [facility]. [address] [place] [address], [address]. tel:[phone] Referring Provider: Aaron Elizabeth, [address] [place] [address], [id number]. tel:[phone] [facility], [address] [place] [address], [id number], [place] tel:[phone] [facility] [place] neck pain (chief complaint) No Information [facility]. [address] [place] [address], [address]. tel:[phone] Referring Provider: Aaron Elizabeth, [address] [place] [address], [id number]. tel:[phone] [facility], [address] [place] [address], [id number], [place] tel:[phone] [facility] [place] neck pain (chief complaint) No Information [facility]. [address] [place] [address], [address]. tel:[phone] Referring Provider: Aaron Elizabeth, [address] [place] [address], [address]. tel:[phone] [facility], [address] [place] [address], [id number], [place] tel:[phone] [facility] [place] neck pain (chief complaint) No Information [facility]. [address] [place] [address], [address]. tel:[phone] Referring Provider: Aaron Elizabeth, [address] [place] [address], [id number]. tel:[phone] [facility], [address] [place] [address], [id number], [place] tel:[phone] [facility] [place] neck pain (chief complaint) Unspecified symptom associated with female genital organs [facility]. [address] [place] [address], [address]. tel:[phone] Referring Provider: Aaron Elizabeth, [address] [place] [address], [id number]. tel:[phone] [facility], [address] [place] [address], [id number], [place] tel:[phone] [facility] [place] neck pain (chief complaint) No Information [facility]. [address] [place] [address], [address]. tel:[phone] Referring Provider: Aaron Elizabeth, [address] [place] [address], [id number]. tel:[phone] [facility], [address] [place] [address], [id number], [place] tel:[phone] [facility] [place] neck pain (chief complaint) No Information [facility]. [address] [place] [address], [address]. tel:[phone] Referring Provider: Aaron Elizabeth, [address] [place] [address], [id number]. tel:[phone] [facility], [address] [place] [address], [id number], [place] tel:[phone] [facility] [place] neck pain (chief complaint) No Information [facility]. [address] [place] [address], [address]. tel:[phone] Referring Provider: Aaron Elizabeth, [address] [place] [address], [id number]. tel:[phone] [facility], [address] [place] [address], [id number], [place] tel:[phone] [facility] [place] neck pain (chief complaint) No Information [facility]. [address] [place] [address], [address]. tel:[phone] Referring Provider: Aaron Elizabeth, [address] [place] [address], [id number]. tel:[phone] [facility], [address] [place] [address], [id number], [place] tel:[phone] [facility] [place] neck pain (chief complaint) No Information [facility]. [address] [place] [address], [address]. tel:[phone] Referring Provider: Aaron Elizabeth, [address] [place] [address], [id number]. tel:[phone] [facility], [address] [place] [address], [id number], [place] tel:[phone] [facility] [place] neck pain (chief complaint) No Information [facility]. [address] [place] [address], [address]. tel:[phone] Referring Provider: Aaron Elizabeth, [address] [place] [address], [id number]. tel:[phone] [facility], [address] [place] [address], [id number], [place] tel:[phone] [facility] [place] neck pain (chief complaint) No Information [facility]. [address] [place] [address], [address]. tel:[phone] Referring Provider: Aaron Elizabeth, [address] [place] [address], [id number]. tel:[phone] [facility], [address] [place] [address], [id number], [place] tel:[phone] [facility] [place] neck pain (chief complaint) No Information Mateus [facility]. [address] [place] [address], [address]. tel:[phone] Referring Provider: Aaron Elizabeth, [address] [place] [address], [id number]. tel:[phone] [facility], [address] [place] [address], [id number], tel:[phone] [facility] [place] neck pain (chief complaint) No Information [facility]. [address] [place] [address], [address]. tel:[phone] Referring Provider: Aaron Elizabeth, [address] [place] [address], [address]. tel:[phone] [facility], [address] [place] [address], [id number], tel:[phone] [facility] [place] neck pain (chief complaint) No Information [facility]. [address] [place] [address], [address]. tel:[phone] Referring Provider: Aaron Elizabeth, [address] [place] [address], [id number]. tel:[phone] [facility], [address] [place] [address], [id number], tel:[phone] [facility] [place] neck pain (chief complaint) Cervicalgia [facility]. [address] [place] [address], [address]. tel:[phone] Referring Provider: Aaron Elizabeth, [address] [place] [address], [id number]. tel:[phone] Family History Family Member Type Diagnosis Age At Onset No Information Payers Payer name Insurance type Covered alliance party ID Dimitry kraftcabrera(s) [id number] Social History Type Description Quantity Date Captured Comments Sex Female Smoking Status No Information Chief Complaint And Reason For Visit No Information Reason For Referral Reason For Referral No Information History Of Present Illness Encounter [...]
== END 2023-03-18 13:16 | disposition home or self-care (01) ==
LOC: NFLDREF 03-20 11:51
PROVIDERS: PCP Family Medicine; Referring Provider Family Medicine; Visit Provider Family Medicine
DX: R39.9 Unspecified symptoms and signs involving the genitourinary system (principal); N95.2 Postmenopausal atrophic vaginitis; R30.0 Dysuria; N39.0 Urinary tract infection, site not specified; R35.1 Nocturia
CPT/HCPCS: 87086

== ENCOUNTER 2023-06-18 08:10 | Outpatient (CLI) | payer OTHER, SELFPAY ==
--- OUTSIDE RECORDS SUMMARY | 2023-06-20 16:54 | XMS_ITS | Continuity of Care Document ---
Author Name Unknown Organization [facility] Address [address] [place] [address] Phone Care Team Providers Care Business Reporting Developer Name Role Phone Will Aaron HERNANDEZ Unavailable [...] Diagnoses Date Provider Providers Copied on Encounter [facility], [address] [place] [address], [id number], [place] tel:[phone] [facility] No Information Derick Walker. [address] [place] [address], [id number], [place]. tel:[phone] [facility], [address] [place] [address], [id number], [place] tel:[phone] [facility] Frozen shoulder (chief complaint) Adhesive capsulitis of shoulder [facility]. [address] [place] [address], [address]. tel:[phone] Referring Provider: Aaron Elizabeth, [address] [place] [address], [id number]. tel:[phone] [facility], [address] [place] [address], [id number], [place] tel:[phone] [facility] Thida Frozen shoulder (chief complaint) Adhesive capsulitis of shoulder [facility]. [address] [place] [address], [address]. tel:[phone] Referring Provider: Aaron Elizabeth, [address] [place] [address], [address]. tel:[phone] [facility], [address] [place] [address], [id number], [place] tel:[phone] [facility] Cordelia neck pain (chief complaint) No Information [facility]. [address] [place] [address], [address]. tel:[phone] Referring Provider: Aaron Elizabeth, [address] [place] [address], [address]. tel:[phone] [facility], [address] [place] [address], [id number], [place] tel:[phone] [facility] Thida neck pain (chief complaint) No Information [facility]. [address] [place] [address], [address]. tel:[phone] Referring Provider: Aaron Elizabeth, [address] [place] [address], [address]. tel:[phone] [facility], [address] [place] [address], [id number], [place] tel:[phone] [facility] Cordelia neck pain (chief complaint) No Information [facility]. [address] [place] [address], [address]. tel:[phone] Referring Provider: Aaron Elizabeth, [address] [place] [address], [address]. tel:[phone] [facility], [address] [place] [address], [id number], [place] tel:[phone] [facility] Cordelia neck pain (chief complaint) No Information [facility]. [address] [place] [address], [address]. tel:[phone] Referring Provider: Aaron Elizabeth, [address] [place] [address], [address]. tel:[phone] [facility], [address] [place] [address], [id number], [place] tel:[phone] [facility] Thida neck pain (chief complaint) No Information [facility]. [address] [place] [address], [address]. tel:[phone] Referring Provider: Aaron Elizabeth, [address] [place] [address], [address]. tel:[phone] [facility], [address] [place] [address], [id number], [place] tel:[phone] [facility] Cordelia neck pain (chief complaint) Adhesive capsulitis of shoulder [facility]. [address] [place] [address], [address]. tel:[phone] Referring Provider: Aaron Elizabeth, [address] [place] [address], [address]. tel:[phone] [facility], [address] [place] [address], [id number], [place] tel:[phone] [facility] Thida neck pain (chief complaint) No Information [facility]. [address] [place] [address], [address]. tel:[phone] Referring Provider: Aaron Elizabeth, [address] [place] [address], [address]. tel:[phone] [facility], [address] [place] [address], [id number], [place] tel:[phone] [facility] Cordelia neck pain (chief complaint) No Information [facility]. [address] [place] [address], [address]. tel:[phone] Referring Provider: Aaron Elizabeth, [address] [place] [address], [address]. tel:[phone] [facility], [address] [place] [address], [id number], [place] tel:[phone] [facility] Cordelia neck pain (chief complaint) No Information [facility]. [address] [place] [address], [address]. tel:[phone] Referring Provider: Aaron Elizabeth, [address] [place] [address], [address]. tel:[phone] [facility], [address] [place] [address], [id number], [place] tel:[phone] [facility] Cordelia neck pain (chief complaint) No Information [facility]. [address] [place] [address], [address]. tel:[phone] Referring Provider: Aaron Elizabeth, [address] [place] [address], [address]. tel:[phone] [facility], [address] [place] [address], [id number], [place] tel:[phone] [facility] Cordelia neck pain (chief complaint) No Information [facility]. [address] [place] [address], [address]. tel:[phone] Referring Provider: Aaron Elizabeth, [address] [place] [address], [address]. tel:[phone] [facility], [address] [place] [address], [id number], [place] tel:[phone] [facility] Thida neck pain (chief complaint) No Information [facility]. [address] [place] [address], [address]. tel:[phone] Referring Provider: Aaron Elizabeth, [address] [place] [address], [address]. tel:[phone] [facility], [address] [place] [address], [id number], [place] tel:[phone] [facility] Cordelia neck pain (chief complaint) Unspecified symptom associated with female genital organs [facility]. [address] [place] [address], [address]. tel:[phone] Referring Provider: Aaron Elizabeth, [address] [place] [address], [address]. tel:[phone] [facility], [address] [place] [address], [id number], [place] tel:[phone] [facility] Cordelia neck pain (chief complaint) No Information [facility]. [address] [place] [address], [address]. tel:[phone] Referring Provider: Aaron Elizabeth, [address] [place] [address], [address]. tel:[phone] [facility], [address] [place] [address], [id number], [place] tel:[phone] [facility] Cordelia neck pain (chief complaint) No Information [facility]. [address] [place] [address], [address]. tel:[phone] Referring Provider: Aaron Elizabeth, [address] [place] [address], [address]. tel:[phone] [facility], [address] [place] [address], [id number], [place] tel:[phone] [facility] Thida neck pain (chief complaint) No Information [facility]. [address] [place] [address], [address]. tel:[phone] Referring Provider: Aaron Elizabeth, [address] [place] [address], [address]. tel:[phone] [facility], [address] [place] [address], [id number], [place] tel:[phone] [facility] Cordelia neck pain (chief complaint) No Information [facility]. [address] [place] [address], [address]. tel:[phone] Referring Provider: Aaron Elizabeth, [address] [place] [address], [address]. tel:[phone] [facility], [address] [place] [address], [id number], [place] tel:[phone] [facility] Cordelia neck pain (chief complaint) No Information [facility]. [address] [place] [address], [address]. tel:[phone] Referring Provider: Aaron Elizabeth, [address] [place] [address], [address]. tel:[phone] [facility], [address] [place] [address], [id number], [place] tel:[phone] [facility] Thida neck pain (chief complaint) No Information [facility] Manleyen. [address] [place] [address], [address]. tel:[phone] Referring Provider: Aaron Elizabeth, [address] [place] [address], [address]. tel:[phone] [facility], [address] [place] [address], [id number], [place] tel:[phone] [facility] Cordelia neck pain (chief complaint) No Information [facility]. [address] [place] [address], [address]. tel:[phone] Referring Provider: Aaron Elizabeth, [address] [place] [address], [address]. tel:[phone] [facility], [address] [place] [address], [id number], [place] tel:[phone] [facility] Cordelia neck pain (chief complaint) No Information [facility]. [address] [place] [address], [address]. tel:[phone] Referring Provider: Aaron Elizabeth, [address] [place] [address], [address]. tel:[phone] [facility], [address] [place] [address], [id number], tel:[phone] [facility] Cordelia neck pain (chief complaint) No Information [facility]. [address] [place] [address], [address]. tel:[phone] Referring Provider: Aaron Elizabeth, [address] [place] [address], [address]. tel:[phone] [facility], [address] [place] [address], [id number], tel:[phone] [facility] Cordelia neck pain (chief complaint) No Information [facility]. [address] [place] [address], [address]. tel:[phone] Referring Provider: Aaron Elizabeth, [address] [place] [address], [address]. tel:[phone] [facility], [address] [place] [address], [id number], tel:[phone] [facility] Thida neck pain (chief complaint) Cervicalgia [facility]. [address] [place] [address], [address]. tel:[phone] Referring Provider: Aaron Elizabeth, [address] [place] [address], [address]. tel:[phone] Family History Family Member Type Diagnosis Age At Onset No Information Payers Payer name Insurance type Covered alliance party ID Dimitry kraftcabrera(s) [facility] [id number] Social History Type Description Quantity Date Captured [...]
--- OUTSIDE RECORDS SUMMARY | 2023-06-20 16:54 | XMS_ITS | Continuity of Care Document ---
Author Name Unknown Organization [facility] Address [address] [address] [place] [address] Phone Care Team Providers Care Bead Maker Name Role Phone Alessandra Larose MD Unavailable [...] Diagnoses Date Provider Providers Copied on Encounter [facility], [address] [address], [place], [place], [id number], tel:[phone] [facility] No Information 9 Lachelle Aparicio. [address], [id number], . tel:[phone] [facility], [address] [address], [place], [place], [id number], tel:[phone] [facility] No Information 9 No Information [facility], [address] [address], [place], [place], [id number], tel:[phone] [facility] Screening ColonoscopyColor ectal polypsDiverticul osis of colon without diverticulitisHe morrhoids, internalPersonal history of colonic polypsBenign neoplasm of cecumEncounter for screening for malignant neoplasm of colonDvrtclos of lg int w/o perforation or abscess w/o bleedingBenign neoplasm of cecumPersonal history of colonic polyps 9 Lachelle Aparicio. [address] [facility] [address], [place], [place], [id number], [place]. tel:[phone] Referring Provider: Referral Self. [facility], [address] [address], [place], [id number], [place] tel:[phone] [facility] Polyp-intes/rect /stom-unc BehFamily Hx GI Tract CancerColon Cancer ScreeningBenign Neoplasm ColonDiverticulo sis Of ColonColon Cancer ScreeningDiverti culosis Of ColonFamily Hx GI Tract CancerBenign Neoplasm Colon 3 Lachelle Aparicio. [address] [facility], [place], [place], [id number], [place]. tel:[phone] Referring Provider: Jade Martin MD R, [address] [place], [address]. tel:[phone] Family History Family Member Type Diagnosis Age At Onset Son Problem (finding) Alive and well Mother Problem (finding) Daughter Problem (finding) Alive and well Father Problem (finding) cancer of colon (Cause Of ) Brother Problem (finding) prostate cancer Payers Payer name Insurance type Covered republican ID Authoriza tion(s) Medicare [facility] MB [id number] [employer] [id number] Social History Type Description Quantity Date Captured [...]
== END 2023-06-18 08:11 | disposition home or self-care (01) ==
LOC: NFLDREF 06-20 16:52
PROVIDERS: PCP Family Medicine; Referring Provider Family Medicine; Visit Provider Family Medicine
DX: R30.0 Dysuria (principal); M79.651 Pain in right thigh; M79.652 Pain in left thigh; F41.1 Generalized anxiety disorder
CPT/HCPCS: 87086

== ENCOUNTER 2023-07-15 13:27 | Outpatient (CLI) | payer OTHER, SELFPAY ==
--- NOTE | 2023-07-15 13:45 | CRLHL7_ITS ---
For Patients: As a result of the Cures Act, medical imaging exams and procedure reports are released immediately into your electronic medical record. You may view this report before your referring provider. If you have questions, please contact your health care provider. Indication: LOCALIZED SWELLING, MASS AND LUMP, CHEST WALL Technique: MRI chest wall without and with 20 DOTAREM IV contrast. Comparison: MRI neck same day Findings: There is a marker placed at the anterior right lower chest wall and upper left chest wall/left lower neck. No suspicious masses or fluid collections. No abscess. Status post bilateral mastectomy. No evidence of adenopathy or destructive marrow change. No pleural effusion. Impression: 1. Negative exam. No evidence of metastatic disease. Dictated by Harvinder Yeager MD @ 07/17/2023 9:22:24 AM (Electronically Signed)
--- NOTE | 2023-07-15 15:15 | CRLHL7_ITS ---
For Patients: As a result of the Century Cures Act, medical imaging exams and procedure reports are released immediately into your electronic medical record. You may view this report before your referring provider. If you have questions, please contact your health care provider. Indication : Localized swelling/lump. Technique : Performed before and after IV gadolinium. Contrast: 20 cc DOTAREM. Comparison : 07/21/2021. Findings : A cutaneous marker is placed over the anterior base of the left neck. This lies over a 6 mm well-circumscribed lesion in the subcutaneous fat, typical for a lymph node. This was likely present on 07/21/2021, but appears slightly enlarged from that date. A few additional normal-sized lymph nodes are scattered elsewhere along both sides of the neck. No pathology is identified along the mucosa of the pharynx or larynx. No fluid collection or additional evidence for a solid mass. The parotid glands, submandibular glands and thyroid gland are symmetric and unremarkable. No abnormal contrast enhancement is identified. The visualized skull base and intracranial contents are unremarkable. Impression: 1. The cutaneous marker lies superficial to a 6 mm well-circumscribed subcutaneous lymph node in the anterior base of the left neck. The node may be slightly larger than on 07/21/2021. 2. Examination otherwise unremarkable. Dictated by Tito Palmer MD @ 07/16/2023 8:25:05 AM (Electronically Signed)
== END 2023-07-15 13:28 | disposition home or self-care (01) ==
PROVIDERS: PCP Family Medicine; Visit Provider Surgery
DX: R22.1 Localized swelling, mass and lump, neck (principal); R22.2 Localized swelling, mass and lump, trunk
CPT/HCPCS: 70543; 73220; A9575

== ENCOUNTER 2023-09-11 09:07 | Outpatient (CLI) | payer OTHER, SELFPAY | END 2023-09-11 09:08 | disposition home or self-care (01) | LOC: NFLDREF 09-14 07:22 | PROVIDERS: PCP Family Medicine; Referring Provider Family Medicine; Visit Provider Family Medicine | DX: I49.9 Cardiac arrhythmia, unspecified (principal); L65.9 Nonscarring hair loss, unspecified; R63.4 Abnormal weight loss; Z13.228 Encounter for screening for other metabolic disorders | CPT/HCPCS: 80053; 82533; 84443 ==

== ENCOUNTER 2024-01-09 15:07 | Outpatient (CLI) | payer OTHER, SELFPAY ==
--- NOTE | 2024-01-09 15:30 | XR_ITS ---
Patient: EUGENE MONTEJO Facility:?[facility] Patient ID:?[id number] Site Patient ID:?[id number]. Site :?[id number] Study:?DEXA-Bone Density SPINE/HIPS-01/09/2024 3:36:20 PM Ordering Physician:ERIK MCKEON Final Report: DXA BONE MINERAL DENSITY STUDY Reason for exam: Screening for osteoporosis. Current height (in): 61.5. Weight (lb): 116. Menopause age: 52. Ethnicity: White. 1. Have you had a previous hip or vertebral fracture? No. 2. Have you had any fractures during your adult life which did not result from significant trauma (e.g., auto accident)? Yes. 3. Did either of your parents have a hip fracture? No. 4. Do you smoke? No. 5. Have you ever taken Glucocorticoids? No. 6. Do you have rheumatoid arthritis? No. 7. Do you have secondary osteoporosis? No. 8. Do you drink 3 or more alcoholic drinks per day? No. 9. Are you being treated for osteoporosis? No. 10. Have you ever taken any of the following medications: Actonel, Evista, Fosamax, Miacalcin, Reclast, Boniva, Forteo, HRT (i.e. estrogen/hormone therapy), Protelos, Prolia, Vitamin D, Calcium, other ? please specify. ANSWER: Yes, vitamin D and calcium. 11. Do you have any of the following medical conditions: Anorexia or bulimia, asthma or emphysema, end stage renal disease, hyperparathyroidism, any seizure disorders, cancer, inflammatory bowel diseases, hysterectomy, other ? please specify. ANSWER: Yes, cancer (skin, breast). 12. What was your maximum height (inches)? 62. 13. Do you perform weight bearing exercise regularly? No. 14. Do you regularly consume dairy products? No. 15. Do you drink caffeinated beverages? No. 16. At what age did your period start? 15. 17. Are you premenopausal? No. 18. How many full term pregnancies have you had? 2. 19. Have you ever missed your period for more than 6 months in a row (not including or menopause)? No. TECHNIQUE: Bone mineral density study was performed using the [employer]. FINDINGS: The results of the study expressed as bone mineral density (BMD) are as follows: Lumbar spine L1 to L4: BMD: 0.798 g/cm2. T-score: -2.3. Z-score: -0.1. Neck Left: BMD: 0.588 g/cm2. T-score: -2.4. Z-score: -0.5. Right: BMD: 0.643 g/cm2. T-score: -1.9. Z-score: 0.0. Total Left: BMD: 0.728 g/cm2. T-score: -1.8. Z-score: -0.2. Right: BMD: 0.795 g/cm2. T-score: -1.2. Z-score: 0.4. IMPRESSION: Osteopenia. FRAX 10-year Fracture Risk Major Osteoporotic Fracture: 20 percent Hip Fracture: 5.0 percent Reported Risk Factors: [place] () Neck BMD=0.588, BMI=21.6, previous fracture Harvinder Yeager M.D. Diagnostic Radiologist [email or web address] DSM/sp R& Transcribed: 7:45 p.m. SP/Dictated by: Harvinder Yeager MD @ 01/10/2024 10:43:00 AM Signed by:?Harvinder Yeager MD @01/10/2024 10:04:17 PM (Electronic Signature)
== END 2024-01-09 15:08 | disposition home or self-care (01) ==
LOC: RAD 15:08
PROVIDERS: PCP Family Medicine; Visit Provider Family Medicine
DX: Z13.820 Encounter for screening for osteoporosis (principal); M85.88 Other specified disorders of bone density and structure, other site
CPT/HCPCS: 77080

== ENCOUNTER 2024-05-14 10:31 | Outpatient (CLI) | payer OTHER, SELFPAY | END 2024-05-14 10:32 | disposition home or self-care (01) | PROVIDERS: PCP Family Medicine; Visit Provider Family Medicine | DX: E78.00 Pure hypercholesterolemia, unspecified (principal); R79.89 Other specified abnormal findings of blood chemistry; M85.80 Other specified disorders of bone density and structure, unspecified site; Z78.0 Asymptomatic menopausal state | CPT/HCPCS: 80053; 80061; 82533; 84443 ==